=== PATIENT | male | born 1945 ===

== ENCOUNTER 2017-03-24 15:34 | Emergency (ER) | payer MEDICARE ==
[2017-03-24 17:01] VITALS: BP 164/101
--- NOTE | 2017-03-24 19:17 | UC ---
Dae Mittal Gabriel, scribed for Gustavo Bro MD on 03/24/17 at 1708 . HPI Febrile Illness - HPI Summary HPI Summary: This patient is a 71 year old F presenting to [facility] [place] accompanied by his with a chief complaint of a febrile illness that began 36 hours ago. The patient rates the pain 3/10 in severity. Patient reports fatigue, coughing, sneezing, fever of 103 F, chills, and sore throat. - History of Current Complaint Chief Complaint: UCGeneralIllness Time Seen by Provider: 03/24/17 17:05 Hx Obtained From: Patient Onset/Duration: Started Hours Ago - 36, Still Present Timing: Constant Initial Severity: Mild Current Severity: Mild Pain Intensity: 3 Pain Scale Used: 0-10 Numeric Associated Signs and Symptoms: Other: - fatigue, coughing, sneezing, fever of 103 F, chills, and sore throat. - Allergy/Home Medications Allergies/Adverse Reactions: Allergies Allergy/AdvReac Type Severity Reaction Status Date / Time No Known Allergies Allergy Verified 03/24/17 17:01 PMH/Surg Hx/FS Hx/Imm Hx Other History Of: Negative For: HIV, Hepatitis B, Hepatitis C - Surgical History Surgical History: None - Family History Known Family History: Negative: Cardiac Disease, Hypertension, Diabetes, Renal Disease, Respiratory Disease, Seizure Disorder, Blood Disorder - Social History Lives: With Family Alcohol Use: None Substance Use Type: None Smoking Status (MU): Never Smoked Tobacco Review of Systems Constitutional: Fever, Chills, Fatigue ENT: Sore Throat, Other - sneezing Respiratory: Cough All Other Systems Reviewed And Are Negative: Yes Physical Exam Triage Information Reviewed: Yes Vital Signs: Initial Vital Signs Temp 100.3 F 03/24/17 16:56 Pulse 87 03/24/17 16:56 Resp 16 03/24/17 16:56 BP 164/101 03/24/17 16:56 Pulse Ox 98 03/24/17 16:56 Vital Signs Reviewed: Yes - Additional Comments VITAL SIGNS: Reviewed. GENERAL: Patient is a well developed and nourished M who is lying comfortable in the stretcher. Patient is not in any acute respiratory distress. HEAD AND FACE: Normocephalic EYES: PERRLA, EOMI x 2. EARS: Hearing grossly intact. MOUTH: Oropharynx within normal limits. NECK: Supple, trachea is midline, no adenopathy, no JVD, no carotid bruit. CHEST: Symmetric, no tenderness at palpation LUNGS: Clear to auscultation bilaterally. No wheezing or crackles. CVS: Regular rate and rhythm, S1 and S2 present, no murmurs or gallops appreciated. ABDOMEN: Soft, non-tender. Bowel sounds are normal. No abdominal abnormal pulsations. EXTREMITIES: Full ROM in all major joints, no edema, no cyanosis or clubbing. NEURO: Alert and oriented x 3. No acute neurological deficits. Speech is normal and follows commands. SKIN: Dry and warm Course/Dx - Course Assessment/Plan: I discussed all the findings and test results with the patient. Pt was instructed to return to the urgent care or go to ER immediately if any of the symptoms return or worsens. Plan of care was discussed with the patient and pt understands and agrees. All questions were answered to patient satisfaction. There were no further complaints or concerns. The patient was diagnosed with influenza A after a positive swab. Medication given. The patient was found to have increase BP in UC. The patient will follow up with PCP for better control of BP. - Diagnoses Clinic Provider Diagnoses: elevated blood pressure without history of hypertension, influenza Discharge - Discharge Plan Condition: Stable Disposition: HOME Prescriptions: Oseltamivir CAP* [Tamiflu CAP*] 75 mg PO BID #10 cap Patient Education Materials: Influenza (DC) Referrals: Gustavo Bowser MD [Primary Care Provider] - 1 Week Additional Instructions: Your blood pressure was elevated during todays visit; please follow up with your primary care provider within a week for further evaluation. The documentation as recorded by the Dae way Gabriel accurately reflects the service I personally performed and the decisions made by me, Gustavo Bro MD.
[2017-03-24] MEDS ORDERED: Oseltamivir CAP* 75 MG CAP PO ONE (19:38)
[2017-03-24] MEDS ORDERED: Oseltamivir CAP* 75 MG CAP ONE (19:39)
[2017-03-24] MEDS ORDERED: Oseltamivir SUSP 75 MG dose* 75 MG/12.5 ML ORAL.SYRIN PO SCH (21:00)
== END 2017-03-24 19:48 | disposition home or self-care (01) ==
LOC: UCEAST 15:34
DX: J11.1 Influenza due to unidentified influenza virus with other respiratory manifestations (principal); R03.0 Elevated blood-pressure reading, without diagnosis of hypertension
CPT/HCPCS: 87502; 99212; A9270-GY; G0463